=== PATIENT | female | born 1950 | race Caucasian/White ===

== ENCOUNTER 2022-07-30 16:17 | Inpatient (IN) ==
[2022-07-30] MEDS ORDERED: IOPAMIDOL 100 ML BOTTLE IV ONE (16:18)
[2022-07-30] MEDS ORDERED: ACETAMINOPHEN 650 MG/65 ML BAG IV ONE (16:22)
[2022-07-30] MEDS ORDERED: 0.9 % SODIUM CHLORIDE 1,000 ML IV ONE (16:22)
--- NOTE | 2022-07-30 16:26 | Emergency Department Note ---
Weakness HPI General Chief complaint: Nausea/Vomiting/Diarrhea Stated complaint: weakness Time Seen by Provider: 07/30/22 16:22 Source: patient and EMS Mode of arrival: wheelchair Limitations: no limitations History of Present Illness HPI Narrative: Narrative: Patient is a 71-year-old female who comes into the emergency department by EMS today after she started to feel weak, nauseated, and short of breath that st arted this morning. Patient has history of COPD and does not wear oxygen at home but required some O2 in route by EMS via nasal Cannula. She also has history of DVT and recently had left hip surgery on Tuesday this week. She was bridged from [employer] over the Lovenox and has been taking Lovenox since surgery. She reports this morning she started to feel ill and developed fever with shortness of breath, cough that is productive with yellow color product, generalized weakness, back pain, and nausea. Patient reports that her hip pain feels fine and she does not have any concerns with her hip. She has not had any chest pains. Related Data Home Medications Medication Instructions Recorded Confirmed albuterol sulfate 90 mcg/actuation 2 puff inhalation Q4HP PRN 09/04/21 07/30/22 aerosol inhaler (Ventolin HFA) Shortness Of Breath cholecalciferol (vitamin D3) 125 125 mcg PO QDAY 09/04/21 07/30/22 mcg (5,000 unit) tablet (Vitamin D3) coenzyme Q10 100 mg capsule (Co 100 mg PO QDAY 09/04/21 07/30/22 Q-10) fluticasone furoate 200 1 inh inhalation QAM 09/04/21 07/30/22 mcg-vilanterol 25 mcg/dose inhalation powder (Breo Ellipta) omeprazole 20 mg capsule,delayed 20 mg PO QDAY 09/04/21 07/30/22 release rosuvastatin 10 mg tablet 10 mg PO QAM 09/04/21 07/30/22 apixaban 5 mg (74 tabs) tablets in 5 mg PO BID 07/21/22 07/30/22 a dose pack fexofenadine 180 mg tablet 540 mg PO Q24H 07/21/22 07/30/22 hydrocodone 5 mg-acetaminophen 325 1 tab PO BIDP PRN Pain 07/21/22 07/30/22 mg tablet hydroxyzine HCl 25 mg tablet 25 mg PO BID@0800,1300 07/21/22 07/30/22 hydroxyzine HCl 25 mg tablet 175 mg PO QHS 07/21/22 07/30/22 ipratropium bromide 42 mcg (0.06 2 spray intranasal DAILYP PRN 07/21/22 07/30/22 %) nasal spray ALLERGIES Previous Rx's Medication Instructions Recorded docusate sodium 100 mg capsule 100 mg PO BID #60 caps 07/26/22 hydrocodone 10 mg-acetaminophen 1 - 2 tab PO Q4H PRN pain #75 tabs 07/26/22 325 mg tablet Allergies Allergy/AdvReac Type Severity Reaction Status Date / Time adhesive tape AdvReac Mild Skin Verified 07/30/22 16:17 Blisters tramadol AdvReac Mild Nausea Verified 07/30/22 16:17 Review of Systems ROS ROS Narrative: Narrative: All systems ED: reviewed and negative except as stated. [facility] Narrative Patient History Narrative: Narrative: Medical/Surgical/Family History All Active Problems (Updated 07/30/22 @ 18:41 by JULIA Pickett) Cerumen impaction (Acute) Pain in extremity (Acute) Rash (Acute) Deltoid tendinitis of left shoulder (Acute) Strain of lumbar paraspinous muscle (Acute) Bronchitis, acute (Acute) Acute sinusitis (Acute) Acute bronchitis (Acute) Bronchitis (Acute) Thumb sprain (Acute) Sinusitis (Acute) Chest pain (Acute) Allergy to adhesive tape (Acute) Deep vein thrombosis (DVT) of proximal lower extremity (Acute) Urticaria (Acute) Pneumonia (Acute) Medical History (Updated 07/30/22 @ 18:41 by JULIA Pickett) Acute bronchitis Acute sinusitis Bronchitis Bronchitis, acute Cerumen impaction Deltoid tendinitis of left shoulder Pain in extremity Rash Strain of lumbar paraspinous muscle Thumb sprain Social History Smoking Status: Former smoker Exam Narrative Narrative: Narrative: General Limitations: no limitations General appearance: Present alert and in no apparent distress Eye Eye: Present normal appearance; Absent scleral icterus ENT ENT: Present normal oropharynx and mucous membranes moist Neck Neck: Present normal inspection; Absent lymphadenopathy Chest Chest: Present symmetric chest wall rise Respiratory Respiratory: Present other (Respirations even and unlabored. Rhonchi heard through all lobes. No wheezes.); Absent respiratory distress Cardiovascular Cardiovascular: Present regular rate, normal rhythm and normal heart sounds; Absent JVD Adbominal Abdominal: Present soft; Absent distention or tenderness Extremities Extremities: Present normal inspection, full ROM and normal capillary refill; Absent pedal edema, pretibial edema or cyanosis Back Back: Present full ROM; Absent spinous process tenderness Neurological Neurological: Present alert and oriented X3 Psychiatric Psychiatric: Present normal affect and normal mood Skin Skin: Present warm (WNL), dry and normal color Course Vital Signs Vital signs: Vital Signs Temperature 102.4 F H 07/30/22 16:18 Pulse Rate 106 H 07/30/22 16:18 Respiratory Rate 20 07/30/22 16:18 Blood Pressure 135/64 07/30/22 16:18 Pulse Oximetry (%) 91 07/30/22 16:18 Oxygen Delivery Method 07/30/22 16:18 Temperature 98.8 F 07/31/22 11:00 Pulse Rate 78 07/31/22 11:55 Respiratory Rate 18 07/31/22 11:55 Blood Pressure 126/59 07/31/22 11:00 Pulse Oximetry (%) 95 07/31/22 12:48 Oxygen Delivery Method 07/31/22 12:48 Oxygen Flow Rate (L/min) 1 07/31/22 11:55 [facility] MDM Narrative Medical decision making narrative: Narrative: Patient is a 71-year-old female who recently had left hip surgery 4 days ago. She began feeling ill earlier this morning and EMS brought her in where she was requiring 4 L O2 via nasal cannula and was found to be hypoxic with room air sat of 86% upon EMS arrival to her home. She has a fever and was given acetaminophen for fever. Begin work-up with labs today, lactic acid, blood cu ltures, 1 L normal saline, and proceeded with a 1 view chest x-ray to evaluate for emergency conditions such as pneumothorax, and also had ordered a CTA of chest given her history of DVT and recent surgery with bridging from her DOAC to the Lovenox. EKG today shows normal sinus rhythm with no acute coronary syndrome findings to my review. The chest x-ray and CTA show bibasilar pneumonia. Patient has negative troponin today. Patient's CMP is rather unremarkable. Her white count today is 13.4. Initially did proceed with the 1 view chest x-ray for evaluation of emergent condition such as pneumothorax given she was having hypoxia. This does not show pneumothorax and shows bilateral pneumonia. Her D- dimer today is elevated at 1.20. A CTA of the chest was completed that does not show any pulmonary embolism. Patient currently is taking Lovenox and bridging to her Eliquis after recent hip surgery. Patient has hypoxia and is requiring 2 L of O2 to maintain oxygen saturation greater than 90% today and they feel that with the bilateral pneumonia and hypoxia the patient should be considered for hospitalization at [facility]. I was able to talk with Dr. Meeks who is on today for hospitalist and he agrees to accept patient for hospital admission at [facility]. Lab Data Result diagrams: 07/31/22 05:26 07/31/22 05:26 Labs: Lab Results 07/30/22 07/30/22 07/30/22 Range/Units 16:33 16:33 16:33 WBC 13.4 H (4.5-11.0) K/mcL RBC 3.80 (3.59-5.38) M/mcL Hgb 10.0 L (11.2-15.7) g/dL Hct 32.4 L (34.1-44.9) % MCV 85.3 (80.0-100.0) fL MCH 26.3 (26.0-34.0) pg MCHC 30.9 L (31.0-36.0) g/dL RDW 14.3 (11.5-14.5) % Plt Count 379 (140-440) K/mcL MPV 9.5 (8.8-12.5) fL Immature Gran % (Auto) 0.4 (0.0-0.5) % Neut % (Auto) 85.1 H (38.0-78.0) % Lymph % (Auto) 8.5 L (15.5-49.0) % Yancey % (Auto) 5.2 (1.0-12.0) % Eos % (Auto) 0.7 (0.0-7.0) % Baso % (Auto) 0.1 (0.0-2.0) % Lymph # (Auto) 1.14 L (1.50-4.80) K/mcL Yancey # (Auto) 0.69 (0.10-0.90) K/mcL Eos # (Auto) 0.09 (0.00-0.70) K/mcL Baso # (Auto) 0.02 (0.00-0.30) K/mcL Immature Gran # 0.05 (0.00-0.05) K/mcl Absolute Neutrophils 11.36 H (1.80-8.00) K/mcL D-Dimer (0.27-0.50) ug/mL POC VBG pH (7.32-7.42) POC VBG pCO2 at Temp (41-51) POC VBG pO2 (25-40) POC VBG HCO3 (24-28) POC VBG Total CO2 (25-29) POC Venous O2 Sat (40-70) POC VBG Base Excess (-2-2) VBG Lactic Acid (0.5-2) Sodium 136 (133-145) mmol/L Potassium 4.0 (3.3-5.1) mmol/L Chloride 100 (96-108) mmol/L Carbon Dioxide 25 (22-30) mmol/L Anion Gap 11.0 (8.0-16.0) BUN 11 (8-23) mg/dL Creatinine 0.8 (0.6-1.1) mg/dL POC Creatinine GFR Calculation 74 Glucose 164 H (70-105) mg/dL Calcium 8.8 (8.6-10.4) mg/dL Total Bilirubin 0.9 (0.1-1.0) mg/dL AST 23 (<32) U/L ALT 14 (<40) U/L Alkaline Phosphatase 122 H (39-117) U/L Troponin T < 0.01 (<0.03) ng/mL NT-Pro-B Natriuret Pep 264.4 H (<125.0) pg/mL Total Protein 6.3 (5.9-8.4) gm/dL Albumin 3.2 (3.2-5.2) gm/dL Globulin 3.1 (2.2-3.7) gm/dL Albumin/Globulin Ratio 1.0 (1.0-2.3) Procalcitonin (<0.10) ng/mL 07/30/22 07/30/22 07/30/22 Range/Units 16:33 16:33 16:36 WBC (4.5-11.0) K/mcL RBC (3.59-5.38) M/mcL Hgb (11.2-15.7) g/dL Hct (34.1-44.9) % MCV (80.0-100.0) fL MCH (26.0-34.0) pg MCHC (31.0-36.0) g/dL RDW (11.5-14.5) % Plt Count (140-440) K/mcL MPV (8.8-12.5) fL Immature Gran % (Auto) (0.0-0.5) % Neut % (Auto) (38.0-78.0) % Lymph % (Auto) (15.5-49.0) % Yancey % (Auto) (1.0-12.0) % Eos % (Auto) (0.0-7.0) % Baso % (Auto) (0.0-2.0) % Lymph # (Auto) (1.50-4.80) K/mcL Yancey # (Auto) (0.10-0.90) K/mcL Eos # (Auto) (0.00-0.70) K/mcL Baso # (Auto) (0.00-0.30) K/mcL Immature Gran # (0.00-0.05) K/mcl Absolute Neutrophils (1.80-8.00) K/mcL D-Dimer (0.27-0.50) ug/mL POC VBG pH 7.41 (7.32-7.42) POC VBG pCO2 at Temp 41.6 (41-51) POC VBG pO2 22 L (25-40) POC VBG HCO3 26.3 (24-28) POC VBG Total CO2 28.0 (25-29) POC Venous O2 Sat 38.0 L (40-70) POC VBG Base Excess 2.0 (-2-2) VBG Lactic Acid 1.1 (0.5-2) Sodium (133-145) mmol/L Potassium (3.3-5.1) mmol/L Chloride (96-108) mmol/L Carbon Dioxide (22-30) mmol/L Anion Gap (8.0-16.0) BUN (8-23) mg/dL Creatinine (0.6-1.1) mg/dL POC Creatinine GFR Calculation Glucose (70-105) mg/dL Calcium (8.6-10.4) mg/dL Total Bilirubin (0.1-1.0) mg/dL AST (<32) U/L ALT (<40) U/L Alkaline Phosphatase (39-117) U/L Troponin T (<0.03) ng/mL NT-Pro-B Natriuret Pep (<125.0) pg/mL Total Protein (5.9-8.4) gm/dL Albumin (3.2-5.2) gm/dL Globulin (2.2-3.7) gm/dL Albumin/Globulin Ratio (1.0-2.3) Procalcitonin 0.15 H (<0.10) ng/mL 07/30/22 07/30/22 Range/Units 16:45 16:56 WBC (4.5-11.0) K/mcL RBC (3.59-5.38) M/mcL Hgb (11.2-15.7) g/dL Hct (34.1-44.9) % MCV (80.0-100.0) fL MCH (26.0-34.0) pg MCHC (31.0-36.0) g/dL RDW (11.5-14.5) % Plt Count (140-440) K/mcL MPV (8.8-12.5) fL Immature Gran % (Auto) (0.0-0.5) % Neut % (Auto) (38.0-78.0) % Lymph % (Auto) (15.5-49.0) % Yancey % (Auto) (1.0-12.0) % Eos % (Auto) (0.0-7.0) % Baso % (Auto) (0.0-2.0) % Lymph # (Auto) (1.50-4.80) K/mcL Yancey # (Auto) (0.10-0.90) K/mcL Eos # (Auto) (0.00-0.70) K/mcL Baso # (Auto) (0.00-0.30) K/mcL Immature Gran # (0.00-0.05) K/mcl Absolute Neutrophils (1.80-8.00) K/mcL D-Dimer 1.20 H (0.27-0.50) ug/mL POC VBG pH (7.32-7.42) POC VBG pCO2 at Temp (41-51) POC VBG pO2 (25-40) POC VBG HCO3 (24-28) POC VBG Total CO2 (25-29) POC Venous O2 Sat (40-70) POC VBG Base Excess (-2-2) VBG Lactic Acid (0.5-2) Sodium (133-145) mmol/L Potassium (3.3-5.1) mmol/L Chloride (96-108) mmol/L Carbon Dioxide (22-30) mmol/L Anion Gap (8.0-16.0) BUN (8-23) mg/dL Creatinine (0.6-1.1) mg/dL POC Creatinine 0.8 GFR Calculation Glucose (70-105) mg/dL Calcium (8.6-10.4) mg/dL Total Bilirubin (0.1-1.0) mg/dL AST (<32) U/L ALT (<40) U/L Alkaline Phosphatase (39-117) U/L Troponin T (<0.03) ng/mL NT-Pro-B Natriuret Pep (<125.0) pg/mL Total Protein (5.9-8.4) gm/dL Albumin (3.2-5.2) gm/dL Globulin (2.2-3.7) gm/dL Albumin/Globulin Ratio (1.0-2.3) Procalcitonin (<0.10) ng/mL ED POC Tests ED POC Tests: FLOR - Influenza A Negative FLOR - Influenza B Negative FLOR - SARS Antigen Negative Radiology Data Radiology results reviewed: Yes I reviewed the patient's radiology results. Radiology results narrative: Ordering Physician:Shree Reyes Date of Service:07/30/22 Procedure(s):CT angio chest History: Short of breath, tachycardia, prior right upper lobectomy for tumor TECHNIQUE: Following injection of intravenous nonionic contrast the chest was imaged during the pulmonary arterial phase. Sagittal, coronal and axial MIPS images were created. The radiation exposure was limited using dose reduction technology. FINDINGS: The pulmonary arteries are normal without evidence of emboli. The aorta is normal in caliber with no aneurysm or dissection. There is minimal plaque formation in the aorta and its origin right main coronary artery. The heart is normal in size and contour. There is a metal loop recorder and subcutaneous tissues anteriorly in the left mid chest. Right upper lobe is been resected. There is pleural and parenchymal scarring in the right apex. Patient has mild emphysema, predominantly involving the left upper lobe. There are moderate ground glass consolidating infiltrates in the posterior basal segments of both lower lobes, left greater than right. No pleural effusion is present. There is no evidence of a lung mass. Small lymph nodes are present in the mediastinum and both louie. There are less than 1 cm in size. There is no pleural or pericardial effusion are present. There is moderate generalized fatty infiltration of the liver, with no apparent liver metastasis the adrenals are normal.. IMPRESSION: No evidence pulmonary emboli Moderate bibasilar pneumonia Emphysema No evidence of metastasis following right upper lobectomy Shree Reyes was called with the report Interpreted and Authenticated by: Ari Rios 07/30/22 Ordering Physician:Shree Reyes Date of Service:07/30/22 Procedure(s):XR chest 1V portable HISTORY: Short of breath, tachycardia, prior right upper lobectomy for lung cancer FINDINGS: Right upper lobe is been resected. There is pleural and parenchymal scarring in the right apex and mild upward retraction of the right hilum. Mild emphysema is present in the left upper lobe. There are ill-defined alveolar infiltrates in both lower lobes, left greater than right. No pleural effusion is present. The heart size is normal. There is a loop recorder overlying the left upper heart border. Right hilum is distorted due to the old surgery. IMPRESSION: Bibasilar pneumonia Interpreted and Authenticated by: Ari Rios 07/30/22 EKG Data EKG #1: EKG attestation: Yes I reviewed and interpreted this EKG. and Yes There a re no EKG findings of acute coronary syndrome EKG shows normal: sinus rhythm Rate: normal Discharge Plan Patient/Caregiver Discharge Instructions Pt seen by PAPER RULER/PA only: No Clinical Impression: Pneumonia Activity: increase activity as tolerated Patient Disposition: Xfer As Inpt ([facility]) Discharge Date/Time: 07/30/22 21:32
--- NOTE | 2022-07-30 17:45 | XRay Report ---
HISTORY: Short of breath, tachycardia, prior right upper lobectomy for lung cancer FINDINGS: Right upper lobe is been resected. There is pleural and parenchymal scarring in the right apex and mild upward retraction of the right hilum. Mild emphysema is present in the left upper lobe. There are ill-defined alveolar infiltrates in both lower lobes, left greater than right. No pleural effusion is present. The heart size is normal. There is a loop recorder overlying the left upper heart border. Right hilum is distorted due to the old surgery. IMPRESSION: Bibasilar pneumonia Interpreted and Authenticated by: Ari Rios 07/30/22
--- NOTE | 2022-07-30 17:48 | Cat Scan Report ---
History: Short of breath, tachycardia, prior right upper lobectomy for tumor TECHNIQUE: Following injection of intravenous nonionic contrast the chest was imaged during the pulmonary arterial phase. Sagittal, coronal and axial MIPS images were created. The radiation exposure was limited using dose reduction technology. FINDINGS: The pulmonary arteries are normal without evidence of emboli. The aorta is normal in caliber with no aneurysm or dissection. There is minimal plaque formation in the aorta and its origin right main coronary artery. The heart is normal in size and contour. There is a metal loop recorder and subcutaneous tissues anteriorly in the left mid chest. Right upper lobe is been resected. There is pleural and parenchymal scarring in the right apex. Patient has mild emphysema, predominantly involving the left upper lobe. There are moderate ground glass consolidating infiltrates in the posterior basal segments of both lower lobes, left greater than right. No pleural effusion is present. There is no evidence of a lung mass. Small lymph nodes are present in the mediastinum and both louie. There are less than 1 cm in size. There is no pleural or pericardial effusion are present. There is moderate generalized fatty infiltration of the liver, with no apparent liver metastasis the adrenals are normal.. IMPRESSION: No evidence pulmonary emboli Moderate bibasilar pneumonia Emphysema No evidence of metastasis following right upper lobectomy Shree Reyes was called with the report Interpreted and Authenticated by: Ari Rios 07/30/22
[2022-07-30 18:06] LABS: Basophils # (Auto) 0.02 K/mcL (0.00-0.30); Basophils % (Auto) 0.1 % (0.0-2.0); Eosinophils # (Auto) 0.09 K/mcL (0.00-0.70); Eosinophils % (Auto) 0.7 % (0.0-7.0); Hematocrit 32.4 % (34.1-44.9); Lymphocytes # (Auto) 1.14 K/mcL (1.50-4.80); Lymphocytes % (Auto) 8.5 % (15.5-49.0); Mean Cell Volume 85.3 fL (80.0-100.0); Mean Corpuscular HGB Conc 30.9 g/dL (31.0-36.0); Mean Platelet Volume 9.5 fL (8.8-12.5); Monocytes # (Auto) 0.69 K/mcL (0.10-0.90); Monocytes % (Auto) 5.2 % (1.0-12.0); Neutrophils % (Auto) 85.1 % (38.0-78.0); Platelet Count 379 K/mcL (140-440); Red Cell Distribution Width 14.3 % (11.5-14.5); WBC 13.4 K/mcL (4.5-11.0)
[2022-07-30] MEDS ORDERED: cefTRIAXone 1 GM VIAL IV ONE (18:19)
[2022-07-30 18:34] LABS: proBNP 264.4 pg/mL (<125.0)
[2022-07-30 18:37] LABS: ALT/SGPT 14 U/L (<40); AST/SGOT 23 U/L (<32); Albumin 3.2 gm/dL (3.2-5.2); Alkaline Phosphatase 122 U/L (39-117); Bilirubin,Total 0.9 mg/dL (0.1-1.0); Blood Urea Nitrogen 11 mg/dL (8-23); Calcium 8.8 mg/dL (8.6-10.4); Carbon Dioxide 25 mmol/L (22-30); Chloride 100 mmol/L (96-108); Globulin 3.1 gm/dL (2.2-3.7); Glomerular Filtration Rate 74; Glucose 164 mg/dL (70-105)
--- NOTE | 2022-07-30 19:34 | Internal Med History&Physical ---
HPI History of Present Illness Patient information: Note initiated : 07/30/22 at 7:31 pm Service Date, if different from initiated Date: [] Patient: Nicole Garcia 71 y/o F admitted on for weakness. Chief Complaint: [] History of present illness: Ms. Garcia is a 71 year old F Presents the ED with shortness of breath and per family lethargy confusion and nausea vomiting. Patient also complains of fever and chills. She went to bed feeling fine and woke up feeling okay but gradually throughout the day she started noticing increased shortness of breath and then she had subsequent fevers and chills and lethargy. Family said she was out of sorts and did not make sense at times. She did have a left total hip arthroplasty on the seventh. And she does have a history of DVT. She has been bridged with Lovenox CTA of the chest was done in the ED which did not show any pulmonary embolism but did show moderate bibasilar pneumonia as well as emphysema. She is coughing as well. In the ED her fever was 102.4. He was mildly tachycardic at 100. She had a mild leukocytosis of 13. When EMS arrived at her house she had a oxygen saturation of 86%. He was placed on room air in the ED to see if she would do and she dropped into the 80s. Rapid Shaista for influenza AB and COVID were negative. Started on IV antibiotics in the ED. Review of Systems: Pertinent positives as above. Denies headache/chest or abdominal pain/diarrhea. Remaining 10 point review of system reviewed negative PFSH PFSH All Active Problems (Updated 07/30/22 @ 18:41 by JULIA Pickett) Cerumen impaction (Acute) Pain in extremity (Acute) Rash (Acute) Deltoid tendinitis of left shoulder (Acute) Strain of lumbar paraspinous muscle (Acute) Bronchitis, acute (Acute) Acute sinusitis (Acute) Acute bronchitis (Acute) Bronchitis (Acute) Thumb sprain (Acute) Sinusitis (Acute) Chest pain (Acute) Allergy to adhesive tape (Acute) Deep vein thrombosis (DVT) of proximal lower extremity (Acute) Urticaria (Acute) Pneumonia (Acute) Medical History (Updated 07/30/22 @ 18:41 by JULIA Pickett) Acute bronchitis Acute sinusitis Bronchitis Bronchitis, acute Cerumen impaction Deltoid tendinitis of left shoulder Pain in extremity Rash Strain of lumbar paraspinous muscle Thumb sprain Social History smoking status: Former smoker MEDS/ALLERGIES Home Medications and Allergies Home Medications Medication Instructions Recorded Confirmed Type albuterol sulfate 90 mcg/actuation 2 puff inhalation Q4HP PRN 09/04/21 07/30/22 History aerosol inhaler (Ventolin HFA) Shortness Of Breath cholecalciferol (vitamin D3) 125 125 mcg PO QDAY 09/04/21 07/30/22 History mcg (5,000 unit) tablet (Vitamin D3) coenzyme Q10 100 mg capsule (Co 100 mg PO QDAY 09/04/21 07/30/22 History Q-10) fluticasone furoate 200 1 inh inhalation QAM 09/04/21 07/30/22 History mcg-vilanterol 25 mcg/dose inhalation powder (Breo Ellipta) omeprazole 20 mg capsule,delayed 20 mg PO QDAY 09/04/21 07/30/22 History release rosuvastatin 10 mg tablet 10 mg PO QAM 09/04/21 07/30/22 History apixaban 5 mg (74 tabs) tablets in 5 mg PO BID 07/21/22 07/30/22 History a dose pack enoxaparin 80 mg/0.8 mL 80 mg subcut Q12H 07/21/22 07/30/22 History subcutaneous syringe (Lovenox) fexofenadine 180 mg tablet 540 mg PO Q24H 07/21/22 07/30/22 History hydrocodone 5 mg-acetaminophen 325 1 tab PO BIDP PRN Pain 07/21/22 07/30/22 History mg tablet hydroxyzine HCl 25 mg tablet 25 mg PO BID@0800,1300 07/21/22 07/30/22 History hydroxyzine HCl 25 mg tablet 175 mg PO QHS 07/21/22 07/30/22 History ipratropium bromide 42 mcg (0.06 2 spray intranasal DAILYP PRN 07/21/22 07/30/22 History %) nasal spray ALLERGIES aspirin 81 mg tablet,delayed 81 mg PO BID #60 tabs 07/26/22 07/30/22 Rx release (Ecotrin Low Strength) docusate sodium 100 mg capsule 100 mg PO BID #60 caps 07/26/22 07/30/22 Rx hydrocodone 10 mg-acetaminophen 1 - 2 tab PO Q4H PRN pain #75 tabs 07/26/22 07/30/22 Rx 325 mg tablet Allergies Allergy/AdvReac Type Severity Reaction Status Date / Time adhesive tape AdvReac Mild Skin Verified 07/30/22 16:17 Blisters tramadol AdvReac Mild Nausea Verified 07/30/22 16:17 EXAM Constitutional Vitals: Temp Pulse Resp BP Pulse Ox O2 Del Method 99.1 F H 84 20 116/57 88 L 07/30/22 19:00 07/30/22 19:13 07/30/22 16:18 07/30/22 19:01 07/30/22 19:13 07/30/22 19:13 Exam: General: Alert, Awake, No acute Distress, obese Eyes/N/T: EOMI, PERRL, Head/Neck: neck supple, normocephalic atraumatic CV: RRR, No murmurs, normal s1/s2 Pulm: Rhonchi b/l, mild wheezing Abd: soft, nontender, +BS x4 Ext: no clubbing/cyanosis, 1-2+ b/l LE edema Neuro: Alert, no focal deficits, moves all extremities, CN 2-12 grossly intact, symmetrical strength b/l upper/lower, sensations intact b/l upper/lower Skin: warm/dry DATA Data Completed and Pending Labs: Labs from last 24 hours 07/30/22 07/30/22 07/30/22 16:56 16:45 16:36 WBC RBC Hgb Hct MCV MCH MCHC RDW Plt Count MPV Immature Gran % (Auto) Neut % (Auto) Lymph % (Auto) [place] % (Auto) Eos % (Auto) Baso % (Auto) Lymph # (Auto) [place] # (Auto) Eos # (Auto) Baso # (Auto) Immature Gran # Absolute Neutrophils D-Dimer 1.20 H POC VBG pH 7.41 POC VBG pCO2 at Temp 41.6 POC VBG pO2 22 L POC VBG HCO3 26.3 POC VBG Total CO2 28.0 POC Venous O2 Sat 38.0 L POC VBG Base Excess 2.0 VBG Lactic Acid 1.1 Sodium Potassium Chloride Carbon Dioxide Anion Gap BUN Creatinine POC Creatinine 0.8 GFR Calculation Glucose Calcium Total Bilirubin AST ALT Alkaline Phosphatase Troponin T NT-Pro-B Natriuret Pep Total Protein Albumin Globulin Albumin/Globulin Ratio Procalcitonin 07/30/22 07/30/22 07/30/22 16:33 16:33 16:33 WBC RBC Hgb Hct MCV MCH MCHC RDW Plt Count MPV Immature Gran % (Auto) Neut % (Auto) Lymph % (Auto) [place] % (Auto) Eos % (Auto) Baso % (Auto) Lymph # (Auto) [place] # (Auto) Eos # (Auto) Baso # (Auto) Immature Gran # Absolute Neutrophils D-Dimer POC VBG pH POC VBG pCO2 at Temp POC VBG pO2 POC VBG HCO3 POC VBG Total CO2 POC Venous O2 Sat POC VBG Base Excess VBG Lactic Acid Sodium Potassium Chloride Carbon Dioxide Anion Gap BUN Creatinine POC Creatinine GFR Calculation Glucose Calcium Total Bilirubin AST ALT Alkaline Phosphatase Troponin T < 0.01 NT-Pro-B Natriuret Pep Total Protein Albumin Globulin Albumin/Globulin Ratio Procalcitonin 0.15 H 07/30/22 07/30/22 16:33 16:33 WBC 13.4 H RBC 3.80 Hgb 10.0 L Hct 32.4 L MCV 85.3 MCH 26.3 MCHC 30.9 L RDW 14.3 Plt Count 379 MPV 9.5 Immature Gran % (Auto) 0.4 Neut % (Auto) 85.1 H Lymph % (Auto) 8.5 L [place] % (Auto) 5.2 Eos % (Auto) 0.7 Baso % (Auto) 0.1 Lymph # (Auto) 1.14 L [place] # (Auto) 0.69 Eos # (Auto) 0.09 Baso # (Auto) 0.02 Immature Gran # 0.05 Absolute Neutrophils 11.36 H D-Dimer POC VBG pH POC VBG pCO2 at Temp POC VBG pO2 POC VBG HCO3 POC VBG Total CO2 POC Venous O2 Sat POC VBG Base Excess VBG Lactic Acid Sodium 136 Potassium 4.0 Chloride 100 Carbon Dioxide 25 Anion Gap 11.0 BUN 11 Creatinine 0.8 POC Creatinine GFR Calculation 74 Glucose 164 H Calcium 8.8 Total Bilirubin 0.9 AST 23 ALT 14 Alkaline Phosphatase 122 H Troponin T NT-Pro-B Natriuret Pep 264.4 H Total Protein 6.3 Albumin 3.2 Globulin 3.1 Albumin/Globulin Ratio 1.0 Procalcitonin A/P Narrative A/P Narrative: A: *Acute hypoxic respiratory failure: *Pneumonia: *Sepsis: 2/2 above *Encephalopathy: Improved in the ED *h/o DVT: on eliquis *COPD: *GERD: *Obesity: BMI 35 *Recent Left HOLLIE: P: -Rocephin/azithromycin, pending SC/BC -O2 Supp and wean as able -IS/Acapella -follow-up CBC and chemistry -RVP pending - -PT/OT -ppx: Eliquis /home PPI Time Spent With Patient Time: Total time spent is greater than 50% in coordination of care (as documented) at patient's floor/unit and/or counseling patient: Total time spent with greater than 50% in coordination of care (as documented) at patient's floor/unit and/or counseling patient:: Greater than 70 minutes
[2022-07-30] MEDS ORDERED: HYDROcodone/APAP 10/325MG TABLET PO ONE (20:14)
[2022-07-30] MEDS ORDERED: HYDROcodone/APAP 5/325MG TABLET PO ONE (20:15)
[2022-07-30] MEDS ORDERED: hydrOXYzine 25 MG TABLET PO PRN (20:56)
[2022-07-30] MEDS ORDERED: ENOXAPARIN 80 MG/0.8 ML SYRINGE SQ SCH (21:00)
[2022-07-30] MEDS ORDERED: HYDROcodone/APAP 5/325MG TABLET PO PRN (21:34)
[2022-07-30] MEDS ORDERED: ACETAMINOPHEN 325 MG TABLET PO PRN (21:34)
[2022-07-30] MEDS ORDERED: POTASSIUM CHLORIDE 20 MEQ TABLET PO PRN ×2 (21:34)
[2022-07-30] MEDS ORDERED: POTASSIUM CHLORIDE 40 MEQ in DEXTROSE 5% IN WATER 500 ML IV PRN (21:34)
[2022-07-30] MEDS ORDERED: SENNOSIDES 1 TABLET PO PRN (21:34)
[2022-07-30] MEDS ORDERED: POLYETHYLENE GLYCOL 3350 17 GM PACKET PO PRN (21:34)
[2022-07-30] MEDS ORDERED: MAGNESIUM SULFATE 2 GM/50 ML BAG IV PRN (21:34)
[2022-07-30] MEDS ORDERED: cefTRIAXone 1 GM in DEXTROSE 5% IN WATER 50 ML IV SCH (21:34)
[2022-07-30] MEDS ORDERED: IPRATROPIUM/ALBUTEROL 3 ML AMPUL.NEB NEB PRN (21:34)
[2022-07-30] MEDS: cefTRIAXone 1 GM VIAL IV SCH (21:58)
[2022-07-30] MEDS: DOCUSATE SODIUM 100 MG CAPSULE PO SCH (22:10)
[2022-07-30] MEDS: 0.9 % SODIUM CHLORIDE 10 ML SYRINGE IV SCH (22:11)
[2022-07-30] MEDS: AZITHROMYCIN 500 MG in DEXTROSE 5% IN WATER 250 ML IV SCH (22:11)
[2022-07-31] MEDS: 0.9 % SODIUM CHLORIDE 10 ML SYRINGE IV SCH ×3 (05:18→20:30)
[2022-07-31 07:25] LABS: Basophils # (Auto) 0.02 K/mcL (0.00-0.30); Basophils % (Auto) 0.2 % (0.0-2.0); Eosinophils # (Auto) 0.25 K/mcL (0.00-0.70); Eosinophils % (Auto) 2.1 % (0.0-7.0); Hematocrit 28.4 % (34.1-44.9); Lymphocytes # (Auto) 1.75 K/mcL (1.50-4.80); Mean Cell Volume 84.8 fL (80.0-100.0); Mean Corpuscular HGB Conc 31.7 g/dL (31.0-36.0); Mean Platelet Volume 9.6 fL (8.8-12.5); Monocytes # (Auto) 0.76 K/mcL (0.10-0.90); Monocytes % (Auto) 6.5 % (1.0-12.0); Neutrophils % (Auto) 75.8 % (38.0-78.0); Platelet Count 357 K/mcL (140-440); RBC 3.35 M/mcL (3.59-5.38); Red Cell Distribution Width 14.3 % (11.5-14.5); WBC 11.7 K/mcL (4.5-11.0)
--- NOTE | 2022-07-31 07:33 | Internal Med Progress Note ---
SUBJECTIVE Subjective Patient information: Note initiated : 07/31/22 at 7:30 am Service Date, if different from initiated Date: [] Patient: Nicole Garcia 71 y/o F admitted on 07/30/22 for weakness. Chief Complaint: [] Interval history: History of present illness: Ms. Garcia is a 71 year old F Presents the ED with shortness of breath and per family lethargy confusion and nausea vomiting. Patient also complains of fever and chills. She went to bed feeling fine and woke up feeling okay but gradually throughout the day she started noticing increased shortness of breath and then she had subsequent fevers and chills and lethargy. Family said she was out of sorts and did not make sense at times. She did have a left total hip arthroplasty on the seventh. And she does have a history of DVT. She has been bridged with Lovenox CTA of the chest was done in the ED which did not show any pulmonary embolism but did show moderate bibasilar pneumonia as well as emphysema. She is coughing as well. In the ED her fever was 102.4. He was mildly tachycardic at 100. She had a mild leukocytosis of 13. When EMS arrived at her house she had a oxygen saturation of 86%. He was placed on room air in the ED to see if she would do and she dropped into the 80s. Rapid Shaista for influenza AB and COVID were negative. Started on IV antibiotics in the ED. 07/31 Patient feeling little bit better today. She says cough and shortness of breath are improving. She does feel little bit wheezy. Review of Systems: denies headache/fever/chills/nausea/vomiting/chest or abdominal pain/diarrhea. Otherwise see above. Constitutional Vitals: Vital Signs Temp Pulse Resp BP Pulse Ox O2 Del Method O2 Flow Rate 98.9 F 76 18 110/51 94 2 07/31/22 03:31 07/31/22 03:31 07/31/22 03:31 07/31/22 03:31 07/31/22 03:31 07/31/22 03:31 07/31/22 03:31 Period Temp Pulse Resp BP Sys/Yen Pulse Ox O2 Del Method O2 Flow Rate Last 24 Hr 98.5 F-102.4 F 73-106 18-20 95-139/46-95 88-98 Nasal Cannula- Room Air 2-2 Intake and Output 07/30/22 07/31/22 07/31/22 19:59 03:59 11:59 Intake Total 1065 450 Output Total 450 Balance 1065 0 Weight 92.079 kg 95.708 kg Intake & Output: Intake & Output 07/30/22 07/31/22 07/31/22 19:59 03:59 11:59 Intake Total 1065 450 Output Total 450 Balance 1065 0 Weight 92.079 kg 95.708 kg Intake: IV 1065 250 Sodium Chloride 0.9% 1,000 ml @ 1000 Wide Open IV .Q0M ONE Rx#: [id number] Zithromax 500 mg In Dextrose 5% 250 in Water 250 ml @ 250 mls/hr IV Q24H [facility] Rx#:[id number] Oral 200 Output: Void Amount 450 Other: Urine Appearance Clear Urine Color Light Aneta Exam: General: Alert, Awake, No acute Distress, obese Eyes/N/T: EOMI, Head/Neck: neck supple, CV: RRR, No murmurs, Pulm: Rhonchi and wheezing b/l Abd: soft, nontender, +BS x4 Ext: no clubbing/cyanosis, 1-2+ b/l LE edema Neuro: Alert, no focal deficits, moves all extremities Skin: warm/dry OBJ DATA Labs CBC & Chem 7: 07/31/22 05:26 07/31/22 05:26 Labs: Abnormal Lab Results 07/31/22 07/30/22 07/30/22 05:26 16:45 16:36 WBC 11.7 H RBC 3.35 L Hgb 9.0 L Hct 28.4 L MCHC Neut % (Auto) Lymph % (Auto) 15.0 L Lymph # (Auto) Absolute Neutrophils 8.82 H D-Dimer 1.20 H POC VBG pO2 22 L POC Venous O2 Sat 38.0 L Glucose Alkaline Phosphatase NT-Pro-B Natriuret Pep Procalcitonin 07/30/22 07/30/22 07/30/22 16:33 16:33 16:33 WBC 13.4 H RBC Hgb 10.0 L Hct 32.4 L MCHC 30.9 L Neut % (Auto) 85.1 H Lymph % (Auto) 8.5 L Lymph # (Auto) 1.14 L Absolute Neutrophils 11.36 H D-Dimer POC VBG pO2 POC Venous O2 Sat Glucose 164 H Alkaline Phosphatase 122 H NT-Pro-B Natriuret Pep 264.4 H Procalcitonin 0.15 H Meds: Medications Acetaminophen (Acetaminophen 325 Mg Tablet) 650 mg PO Q6HP PRN; Protocol PRN Reason: Per Pain Protocol/Fever > 101 Hydrocodone Bitart/Acetaminophen (Hydrocodone/Apap 10/325mg Tablet) 1 - 2 tab PO Q4HP PRN; Protocol PRN Reason: pain Albuterol/Ipratropium (Ipratropium/Albuterol 3 Ml Ampul.Neb) 3 ml NEB Q4HP PRN PRN Reason: Shortness Of Breath Apixaban (Apixaban 5 Mg Tablet) 5 mg PO BID [facility] Atorvastatin Calcium (Atorvastatin 20 Mg Tablet) 20 mg PO QAM [facility] Ceftriaxone Sodium (Ceftriaxone 1 Gm Vial) 1 gm IV Q24H [facility] Last Admin: 07/30/22 21:58 Dose: Not Given Docusate Sodium (Docusate Sodium 100 Mg Capsule) 100 mg PO BID [facility] Last Admin: 07/30/22 22:10 Dose: 100 mg Hydroxyzine HCl (Hydroxyzine 25 Mg Tablet) 100 mg PO HSP PRN PRN Reason: anxiety/insomina Potassium Chloride 40 meq/ (Dextrose) 520 mls @ 130 mls/hr IV UD PRN PRN Reason: Potassium < 3 Magnesium Sulfate (Magnesium Sulfate) 2 gm in 50 mls @ 50 mls/hr IV UD PRN PRN Reason: Magnesium </= 1.6 Azithromycin 500 mg/ Dextrose 250 mls @ 250 mls/hr IV Q24H [facility]; Protocol Stop: 08/01/22 22:59 Last Infusion: 07/30/22 23:18 Dose: Infused Omeprazole (Omeprazole 20 Mg Capsule) 20 mg PO QDAY [facility] Ondansetron HCl (Ondansetron 4 Mg/2 Ml Vial) 4 mg IV Q4HP PRN PRN Reason: Nausea And Vomiting Fluticasone Furoate- Vilanterol [Breo Ellipta] 200mg 1 dose INH QAM [facility] Polyethylene Glycol (Polyethylene Glycol 3350 17 Gm Packet) 17 gm PO DAILYP PRN PRN Reason: Constipation Potassium Chloride (Potassium Chloride 20 Meq Tablet) 40 meq PO UD PRN PRN Reason: Potssium is 3-3.5 Potassium Chloride (Potassium Chloride 20 Meq Tablet) 40 meq PO UD PRN PRN Reason: Potassium < 3 Senna (Sennosides 1 Tablet) 2 tab PO DAILYP PRN PRN Reason: Constipation Sodium Chloride (0.9 % Sodium Chloride 10 Ml Syringe) 10 ml IV Q8 [facility] Last Admin: 07/31/22 05:18 Dose: 10 ml A/P Narrative A/P Narrative: A: *Acute hypoxic respiratory failure: -down to 1L NC *Pneumonia: *Sepsis: 2/2 above -Leukocytosis improved *Encephalopathy: Improved in the ED *h/o DVT: on eliquis *COPD: *GERD: *Obesity: BMI 35 *Recent Left HOLLIE: P: -Rocephin/azithromycin, pending SC/BC -O2 Supp and wean as able -IS/Acapella -follow-up CBC and chemistry -RVP pending -PT/OT -ppx: Eliquis /home PPI Time Spent With Patient Time: Total time spent is greater than 50% in coordination of care (as documented) at patient's floor/unit and/or counseling patient: Total time spent with greater than 50% in coordination of care (as documented) at patient's floor/unit and/or counseling patient:: 25 - 35 minutes QUALITY VTE Deep Vein Thrombosis/Pulmonary Embolism Present on Admission: No
[2022-07-31 07:46] LABS: ALT/SGPT 15 U/L (<40); AST/SGOT 22 U/L (<32); Albumin 3.1 gm/dL (3.2-5.2); Albumin/Globulin Ratio 1.2 (1.0-2.3); Alkaline Phosphatase 119 U/L (39-117); Bilirubin,Direct 0.3 mg/dL (<0.3); Bilirubin,Total 0.7 mg/dL (0.1-1.0); Blood Urea Nitrogen 12 mg/dL (8-23); Calcium 8.4 mg/dL (8.6-10.4); Carbon Dioxide 26 mmol/L (22-30); Chloride 99 mmol/L (96-108); Globulin 2.6 gm/dL (2.2-3.7); Glomerular Filtration Rate 74; Glucose 128 mg/dL (70-105); Lactate Dehydrogenase 202 U/L (135-225); Phosphorous 2.6 mg/dL (2.5-4.5); Triglycerides 76 mg/dL (<150); Uric Acid 4.1 mg/dL (2.5-8.0)
[2022-07-31] MEDS: APIXABAN 5 MG TABLET PO SCH ×2 (08:35→20:30)
[2022-07-31] MEDS: DOCUSATE SODIUM 100 MG CAPSULE PO SCH ×2 (08:35→20:36)
[2022-07-31] MEDS: OMEPRAZOLE 20 MG CAPSULE PO SCH (08:35)
[2022-07-31] MEDS: ATORVASTATIN 20 MG TABLET PO SCH (08:35)
[2022-07-31] MEDS: FLUTICASONE FUROATE INH SCH (08:40)
[2022-07-31] MEDS: VILANTEROL INH SCH (08:40)
[2022-07-31] MEDS ORDERED: IPRATROPIUM/ALBUTEROL 3 ML AMPUL.NEB NEB SCH (09:30)
[2022-07-31] MEDS: cefTRIAXone 1 GM VIAL IV SCH (10:44)
--- NOTE | 2022-07-31 12:08 | Discharge Summary ---
Discharge Provider Provider IMPORTANT FOLLOW-UP INFORMATION FOR PCP: Patient information: Note initiated : 07/31/22 at 12:06 pm Service Date, if different from initiated Date: [] Patient: Nicole Garcia a 71 y/o F admitted on 07/30/22 for weakness. Chief Complaint: [] Date of admission: 07/30/22 21:32 Discharge date: 08/01/22 Primary care physician: Leonel Kemp Consults: 07/30/22 Consult to Physician [CONS] Stat Comment: Consulting Provider: Sotero Meeks Reason For Exam: Physician to Consult COURSE Hospital Course Hospital course: History of present illness: Ms. Garcia is a 71 year old F Presents the ED with shortness of breath and per family lethargy confusion and nausea vomiting. Patient also complains of fever and chills. She went to bed feeling fine and woke up feeling okay but gradually throughout the day she started noticing increased shortness of breath and then she had subsequent fevers and chills and lethargy. Family said she was out of sorts and did not make sense at times. She did have a left total hip arthroplasty on the seventh. And she does have a history of DVT. She has been bridged with Lovenox CTA of the chest was done in the ED which did not show any pulmonary embolism but did show moderate bibasilar pneumonia as well as emphysema. She is coughing as well. In the ED her fever was 102.4. He was mildly tachycardic at 100. She had a mild leukocytosis of 13. When EMS arrived at her house she had a oxygen saturation of 86%. He was placed on room air in the ED to see if she would do and she dropped into the 80s. Rapid Shaista for influenza AB and COVID were negative. Started on IV antibiotics in the ED. 07/31 Patient feeling little bit better today. She says cough and shortness of breath are improving. She does feel little bit wheezy. 08/01 Patient doing well. On room air. Desire to go home. Stable for discharge. A: *Acute hypoxic respiratory failure: *Pneumonia: *Sepsis: 2/2 above *Encephalopathy: Improved in the ED *h/o DVT: on eliquis *COPD: *GERD: *Obesity: BMI 35 *Recent Left HOLLIE: P: -Abx Discharge diagnosis: Pneumonia acute hypoxic respite failure sepsis Enc ephalopathy Secondary discharge diagnosis: History of DVT COPD GERD obesity recent left total hip arthroplasty Time Spent with Patient Time attestation: Total time spent providing and/or coordinating discharge services: Time spent: Greater than 30 minutes EXAM Constitutional Vitals: Temp Pulse Resp BP Pulse Ox O2 Del Method O2 Flow Rate 97.6 F 78 18 136/62 96 1 07/31/22 07:00 07/31/22 11:55 07/31/22 11:55 07/31/22 07:00 07/31/22 11:55 07/31/22 11:55 07/31/22 11:55 Discharge Data Data Completed and Pending Labs on day of discharge: Labs from last 24 hours 07/31/22 07/31/22 07/30/22 05:26 05:26 16:56 WBC 11.7 H RBC 3.35 L Hgb 9.0 L Hct 28.4 L MCV 84.8 MCH 26.9 MCHC 31.7 RDW 14.3 Plt Count 357 MPV 9.6 Immature Gran % (Auto) 0.4 Neut % (Auto) 75.8 Lymph % (Auto) 15.0 L [place] % (Auto) 6.5 Eos % (Auto) 2.1 Baso % (Auto) 0.2 Lymph # (Auto) 1.75 [place] # (Auto) 0.76 Eos # (Auto) 0.25 Baso # (Auto) 0.02 Immature Gran # 0.05 Absolute Neutrophils 8.82 H D-Dimer POC VBG pH POC VBG pCO2 at Temp POC VBG pO2 POC VBG HCO3 POC VBG Total CO2 POC Venous O2 Sat POC VBG Base Excess VBG Lactic Acid Sodium 135 Potassium 3.9 Chloride 99 Carbon Dioxide 26 Anion Gap 10.0 BUN 12 Creatinine 0.8 POC Creatinine 0.8 GFR Calculation 74 Glucose 128 H Uric Acid 4.1 Calcium 8.4 L Phosphorus 2.6 Magnesium 1.9 Total Bilirubin 0.7 Direct Bilirubin 0.3 H GGT 71 H AST 22 ALT 15 Alkaline Phosphatase 119 H Lactate Dehydrogenase 202 Troponin T NT-Pro-B Natriuret Pep Total Protein 5.7 L Albumin 3.1 L Globulin 2.6 Albumin/Globulin Ratio 1.2 Triglycerides 76 Procalcitonin 07/30/22 07/30/22 07/30/22 16:45 16:36 16:33 WBC RBC Hgb Hct MCV MCH MCHC RDW Plt Count MPV Immature Gran % (Auto) Neut % (Auto) Lymph % (Auto) [place] % (Auto) Eos % (Auto) Baso % (Auto) Lymph # (Auto) [place] # (Auto) Eos # (Auto) Baso # (Auto) Immature Gran # Absolute Neutrophils D-Dimer 1.20 H POC VBG pH 7.41 POC VBG pCO2 at Temp 41.6 POC VBG pO2 22 L POC VBG HCO3 26.3 POC VBG Total CO2 28.0 POC Venous O2 Sat 38.0 L POC VBG Base Excess 2.0 VBG Lactic Acid 1.1 Sodium Potassium Chloride Carbon Dioxide Anion Gap BUN Creatinine POC Creatinine GFR Calculation Glucose Uric Acid Calcium Phosphorus Magnesium Total Bilirubin Direct Bilirubin GGT AST ALT Alkaline Phosphatase Lactate Dehydrogenase Troponin T NT-Pro-B Natriuret Pep Total Protein Albumin Globulin Albumin/Globulin Ratio Triglycerides Procalcitonin 07/30/22 07/30/22 07/30/22 16:33 16:33 16:33 WBC RBC Hgb Hct MCV MCH MCHC RDW Plt Count MPV Immature Gran % (Auto) Neut % (Auto) Lymph % (Auto) [place] % (Auto) Eos % (Auto) Baso % (Auto) Lymph # (Auto) [place] # (Auto) Eos # (Auto) Baso # (Auto) Immature Gran # Absolute Neutrophils D-Dimer POC VBG pH POC VBG pCO2 at Temp POC VBG pO2 POC VBG HCO3 POC VBG Total CO2 POC Venous O2 Sat POC VBG Base Excess VBG Lactic Acid Sodium 136 Potassium 4.0 Chloride 100 Carbon Dioxide 25 Anion Gap 11.0 BUN 11 Creatinine 0.8 POC Creatinine GFR Calculation 74 Glucose 164 H Uric Acid Calcium 8.8 Phosphorus Magnesium Total Bilirubin 0.9 Direct Bilirubin GGT AST 23 ALT 14 Alkaline Phosphatase 122 H Lactate Dehydrogenase Troponin T < 0.01 NT-Pro-B Natriuret Pep 264.4 H Total Protein 6.3 Albumin 3.2 Globulin 3.1 Albumin/Globulin Ratio 1.0 Triglycerides Procalcitonin 0.15 H 07/30/22 16:33 WBC 13.4 H RBC 3.80 Hgb 10.0 L Hct 32.4 L MCV 85.3 MCH 26.3 MCHC 30.9 L RDW 14.3 Plt Count 379 MPV 9.5 Immature Gran % (Auto) 0.4 Neut % (Auto) 85.1 H Lymph % (Auto) 8.5 L [place] % (Auto) 5.2 Eos % (Auto) 0.7 Baso % (Auto) 0.1 Lymph # (Auto) 1.14 L [place] # (Auto) 0.69 Eos # (Auto) 0.09 Baso # (Auto) 0.02 Immature Gran # 0.05 Absolute Neutrophils 11.36 H D-Dimer POC VBG pH POC VBG pCO2 at Temp POC VBG pO2 POC VBG HCO3 POC VBG Total CO2 POC Venous O2 Sat POC VBG Base Excess VBG Lactic Acid Sodium Potassium Chloride Carbon Dioxide Anion Gap BUN Creatinine POC Creatinine GFR Calculation Glucose Uric Acid Calcium Phosphorus Magnesium Total Bilirubin Direct Bilirubin GGT AST ALT Alkaline Phosphatase Lactate Dehydrogenase Troponin T NT-Pro-B Natriuret Pep Total Protein Albumin Globulin Albumin/Globulin Ratio Triglycerides Procalcitonin Discharge Plan Patient/Caregiver Discharge Instructions Activity: increase activity as tolerated Diet: Regular Diet Prescriptions: New cefdinir 300 mg capsule 300 mg PO Q12H Qty: 10 0RF Continued omeprazole 20 mg Capsule,Delayed Release(Dr/Ec) 20 mg PO QDAY albuterol sulfate [Ventolin HFA] 90 mcg/actuation HFA aerosol inhaler 2 puff INHALATION Q4HP PRN (Reason: Shortness Of Breath) coenzyme Q10 [Co Q-10] 100 mg Capsule 100 mg PO QDAY rosuvastatin 10 mg Tablet 10 mg PO QAM Rx Instructions: Cannot recall dose; will call back with this later. cholecalciferol (vitamin D3) [Vitamin D3] 125 mcg (5,000 unit) Tablet 125 mcg PO QDAY fluticasone furoate-vilanterol [Breo Ellipta] 200-25 mcg/dose blister with device 1 inh INHALATION QAM hydrocodone-acetaminophen 5-325 mg Tablet 1 tab PO BIDP PRN (Reason: Pain) fexofenadine 180 mg Tablet 540 mg PO Q24H hydroxyzine HCl 25 mg Tablet 25 mg PO BID@0800,1300 hydroxyzine HCl 25 mg Tablet 175 mg PO QHS ipratropium bromide 42 mcg (0.06 %) [place],Non-Aerosol 2 spray INTRANASAL DAILYP PRN (Reason: ALLERGIES) Rx Instructions: administer into each nostril apixaban 5 mg (74 tabs) tablets,dose pack 5 mg PO BID hydrocodone-acetaminophen 10-325 mg tablet 1 - 2 tab PO Q4H PRN (Reason: pain) Qty: 75 0RF docusate sodium 100 mg capsule 100 mg PO BID Qty: 60 0RF Discontinued enoxaparin [Lovenox] 80 mg/0.8 mL Syringe 80 mg SUBCUT Q12H Rx Instructions: PT INSTRUCTED TO DO LOVENOX SHOTS 4 DAYS POST-OP aspirin [Ecotrin Low Strength] 81 mg tablet,delayed release (DR/EC) 81 mg PO BID Qty: 60 0RF Follow Up Plan Follow up with: Leonel Kemp [Primary Care Provider] - Patient Disposition: Home, Self-Care Overall status at discharge: patient is progressing back to baseline Discharge Orders: Discharge Order (Routine); Ordered 08/01/22 Ordered By: Sotero Meeks [facility] VTE Deep Vein Thrombosis/Pulmonary Embolism Present on Admission: No
[2022-07-31] MEDS: HYDROcodone/APAP 10/325MG TABLET PO PRN (12:43)
[2022-07-31] MEDS: AZITHROMYCIN 500 MG in DEXTROSE 5% IN WATER 250 ML IV SCH (13:46)
[2022-07-31] MEDS: ONDANSETRON 4 MG/2 ML VIAL IV PRN (14:42)
[2022-08-01] MEDS: ONDANSETRON 4 MG/2 ML VIAL IV PRN (03:34)
[2022-08-01] MEDS: 0.9 % SODIUM CHLORIDE 10 ML SYRINGE IV SCH ×2 (03:34→05:01)
[2022-08-01] MEDS: HYDROcodone/APAP 10/325MG TABLET PO PRN (05:56)
--- NOTE | 2022-08-01 08:35 | EKG ---
[facility] Minor Care Test Date: 2022-07-30 Pat Name: Nicole Garcia Department: ED Room: Gender: Female Rn Critical Care: LR : 1950 Requested By: Shree Reyes Order Number: [id number] Reading MD: Mak Wilkins Measurements Intervals [place]le Rate: 99 P: 28 CT: 144 QRS: -28 QRSD: 117 T: 107 QT: 422 QTc: 542 Interpretive Statements Sinus rhythm Nonspecific intraventricular conduction delay Borderline T abnormalities, lateral leads Electronically Signed On 08-01-2022 8:35:04 PST by Mak Wilkins /[id number]
[2022-08-01] MEDS: DOCUSATE SODIUM 100 MG CAPSULE PO SCH (10:01)
[2022-08-01] MEDS: cefTRIAXone 1 GM VIAL IV SCH (10:01)
[2022-08-01] MEDS: ATORVASTATIN 20 MG TABLET PO SCH (10:01)
[2022-08-01] MEDS: APIXABAN 5 MG TABLET PO SCH (10:01)
[2022-08-01] MEDS: OMEPRAZOLE 20 MG CAPSULE PO SCH (10:01)
[2022-08-01] MEDS: FLUTICASONE FUROATE INH SCH (10:02)
[2022-08-01] MEDS: VILANTEROL INH SCH (10:02)
== END 2022-08-01 11:00 | disposition home or self-care (01) | DRG 871 ==
LOC: ED 16:17 → MEDSUR 21:32
PROVIDERS: ADMIT Internal Medicine; ATTEND Internal Medicine

== ENCOUNTER 2024-07-16 15:43 | Inpatient (IN) ==
[2024-07-16] MEDS ORDERED: IOPAMIDOL 100 ML BOTTLE IV ONE (15:44)
[2024-07-16] MEDS: cefTRIAXone 1 GM VIAL IV ONE (16:35)
[2024-07-16] MEDS: 0.9 % SODIUM CHLORIDE 1,000 ML IV ONE (16:35)
[2024-07-16 16:39] LABS: Basophils # (Auto) 0.03 K/mcL (0.00-0.30); Basophils % (Auto) 0.3 % (0.0-2.0); Eosinophils # (Auto) 0 K/mcL (0.00-0.70); Eosinophils % (Auto) 0 % (0.0-7.0); Hematocrit 38.5 % (34.1-44.9); Lymphocytes # (Auto) 1.72 K/mcL (1.50-4.80); Mean Corpuscular HGB Conc 31.2 g/dL (31.0-36.0); Mean Platelet Volume 9.8 fL (8.8-12.5); Monocytes # (Auto) 0.76 K/mcL (0.10-0.90); Monocytes % (Auto) 6.6 % (1.0-12.0); Neutrophils % (Auto) 77.8 % (38.0-78.0); Platelet Count 419 K/mcL (140-440); RBC 4.64 M/mcL (3.59-5.38); Red Cell Distribution Width 16.8 % (11.5-14.5); WBC 11.5 K/mcL (4.5-11.0)
[2024-07-16 16:51] LABS: ALT/SGPT 32 U/L (<40); AST/SGOT 45 U/L (<32); Albumin 4.2 gm/dL (3.2-5.2); Albumin/Globulin Ratio 1.1 (1.0-2.3); Alkaline Phosphatase 111 U/L (39-117); Bilirubin,Total 1.3 mg/dL (0.1-1.0); Blood Urea Nitrogen 9 mg/dL (8-23); Calcium 9.1 mg/dL (8.6-10.4); Carbon Dioxide 20 mmol/L (22-30); Chloride 98 mmol/L (96-108); Globulin 3.8 gm/dL (2.2-3.7); Glomerular Filtration Rate 86; Glucose 145 mg/dL (70-105); Potassium 3.6 mmol/L (3.3-5.1); Sodium 135 mmol/L (133-145)
[2024-07-16] MEDS: ONDANSETRON 4 MG/2 ML VIAL IV ONE (20:09)
[2024-07-16] MEDS ORDERED: traZODone HCL 50 MG TABLET PO PRN (21:12)
[2024-07-16] MEDS ORDERED: oxyCODONE IR 5 MG TABLET PO PRN (21:12)
[2024-07-16] MEDS ORDERED: IBUPROFEN 600 MG TABLET PO PRN (21:12)
[2024-07-16] MEDS ORDERED: IPRATROPIUM/ALBUTEROL 3 ML AMPUL.NEB NEB PRN (21:12)
[2024-07-16] MEDS ORDERED: morphine 4 MG/ML VIAL IV PRN (21:12)
[2024-07-16] MEDS: ACETAMINOPHEN 325 MG TABLET PO PRN (23:04)
[2024-07-16] MEDS: SENNOSIDES 1 TABLET PO SCH (23:05)
[2024-07-16] MEDS: APIXABAN 5 MG TABLET PO SCH (23:05)
[2024-07-16] MEDS: DOCUSATE SODIUM 100 MG CAPSULE PO SCH (23:05)
[2024-07-16] MEDS: AZITHROMYCIN 500 MG in DEXTROSE 5% IN WATER 250 ML IV SCH (23:28)
[2024-07-16] MEDS: AZITHROMYCIN 500 MG in DEXTROSE 5% IN WATER 250 ML IV ONE (23:29)
[2024-07-16] MEDS: 0.9 % SODIUM CHLORIDE 10 ML SYRINGE IV SCH (23:29)
[2024-07-17 06:55] LABS: Basophils # (Auto) 0.02 K/mcL (0.00-0.30); Basophils % (Auto) 0.2 % (0.0-2.0); Eosinophils # (Auto) 0.01 K/mcL (0.00-0.70); Eosinophils % (Auto) 0.1 % (0.0-7.0); Hematocrit 35.1 % (34.1-44.9); Hemoglobin 10.8 g/dL (11.2-15.7); Lymphocytes # (Auto) 2.34 K/mcL (1.50-4.80); Lymphocytes % (Auto) 21.9 % (15.5-49.0); Mean Cell Volume 85.6 fL (80.0-100.0); Mean Corpuscular HGB Conc 30.8 g/dL (31.0-36.0); Mean Platelet Volume 9.7 fL (8.8-12.5); Monocytes # (Auto) 0.85 K/mcL (0.10-0.90); Monocytes % (Auto) 7.9 % (1.0-12.0); Neutrophils % (Auto) 69.5 % (38.0-78.0); Platelet Count 315 K/mcL (140-440); Red Cell Distribution Width 16.9 % (11.5-14.5); WBC 10.7 K/mcL (4.5-11.0)
[2024-07-17 07:23] LABS: ALT/SGPT 26 U/L (<40); AST/SGOT 36 U/L (<32); Albumin 3.5 gm/dL (3.2-5.2); Albumin/Globulin Ratio 1.1 (1.0-2.3); Alkaline Phosphatase 96 U/L (39-117); Blood Urea Nitrogen 9 mg/dL (8-23); Calcium 8.1 mg/dL (8.6-10.4); Carbon Dioxide 24 mmol/L (22-30); Chloride 105 mmol/L (96-108); Globulin 3.2 gm/dL (2.2-3.7); Glomerular Filtration Rate 90; Glucose 128 mg/dL (70-105); Potassium 3.2 mmol/L (3.3-5.1); Sodium 140 mmol/L (133-145)
[2024-07-17] MEDS: cefTRIAXone 1 GM VIAL IV SCH (08:31)
[2024-07-17] MEDS: AZITHROMYCIN 500 MG in 0.9 % SODIUM CHLORIDE 250 ML IV SCH (10:54)
[2024-07-17] MEDS ORDERED: METHOCARBAMOL 500 MG TABLET PO PRN (14:00)
[2024-07-17] MEDS: guaiFENesin/DEXTROMETHORPHAN 5ML UD CUP PO PRN (15:03)
[2024-07-17] MEDS: POTASSIUM CHLORIDE 20 MEQ TABLET PO SCH (17:15)
[2024-07-17] MEDS: rOPINIRole 1 MG TABLET PO SCH (20:21)
[2024-07-17] MEDS: HYDROCODONE/APAP 7.5/325MG TABLET PO SCH (20:22)
[2024-07-18] MEDS: ONDANSETRON 4 MG/2 ML VIAL IV PRN (04:36)
[2024-07-18 06:40] LABS: ALT/SGPT 23 U/L (<40); AST/SGOT 28 U/L (<32); Albumin 3.3 gm/dL (3.2-5.2); Alkaline Phosphatase 96 U/L (39-117); Bilirubin,Total 0.4 mg/dL (0.1-1.0); Blood Urea Nitrogen 9 mg/dL (8-23); Calcium 8.1 mg/dL (8.6-10.4); Carbon Dioxide 24 mmol/L (22-30); Chloride 104 mmol/L (96-108); Globulin 3.2 gm/dL (2.2-3.7); Glomerular Filtration Rate 96; Glucose 113 mg/dL (70-105); Potassium 3.5 mmol/L (3.3-5.1); Sodium 139 mmol/L (133-145)
[2024-07-18 06:41] LABS: Basophils # (Auto) 0.03 K/mcL (0.00-0.30); Basophils % (Auto) 0.3 % (0.0-2.0); Eosinophils # (Auto) 0.14 K/mcL (0.00-0.70); Eosinophils % (Auto) 1.6 % (0.0-7.0); Hematocrit 32.4 % (34.1-44.9); Hemoglobin 9.9 g/dL (11.2-15.7); Lymphocytes # (Auto) 2.21 K/mcL (1.50-4.80); Lymphocytes % (Auto) 25.5 % (15.5-49.0); Mean Cell Volume 84.8 fL (80.0-100.0); Mean Corpuscular HGB Conc 30.6 g/dL (31.0-36.0); Monocytes # (Auto) 0.68 K/mcL (0.10-0.90); Monocytes % (Auto) 7.9 % (1.0-12.0); Neutrophils % (Auto) 64.4 % (38.0-78.0); Platelet Count 282 K/mcL (140-440); RBC 3.82 M/mcL (3.59-5.38); Red Cell Distribution Width 16.5 % (11.5-14.5); WBC 8.7 K/mcL (4.5-11.0)
[2024-07-18] MEDS: OMEPRAZOLE 20 MG CAPSULE PO SCH (08:07)
[2024-07-18] MEDS: ASPIRIN 81 MG TAB.CHEW PO SCH (10:58)
[2024-07-18] MEDS: EZETIMIBE 10 MG TABLET PO SCH (10:58)
[2024-07-18] MEDS: Fluticasone Furoate-Vilanterol [Breo Ellipta] 200 INH SCH (10:58)
[2024-07-18] MEDS: LORATADINE 10 MG TABLET PO SCH (10:58)
[2024-07-18] MEDS: CALCIUM W/VIT D3 500 MG TABLET PO SCH (10:58)
[2024-07-18] MEDS: VITAMIN D3 125 MCG TABLET PO SCH (10:58)
[2024-07-19 07:10] LABS: Basophils # (Auto) 0.03 K/mcL (0.00-0.30); Basophils % (Auto) 0.5 % (0.0-2.0); Eosinophils # (Auto) 0.21 K/mcL (0.00-0.70); Eosinophils % (Auto) 3.3 % (0.0-7.0); Hematocrit 32.8 % (34.1-44.9); Hemoglobin 9.9 g/dL (11.2-15.7); Lymphocytes # (Auto) 2.42 K/mcL (1.50-4.80); Lymphocytes % (Auto) 38.1 % (15.5-49.0); Mean Cell Volume 85.9 fL (80.0-100.0); Mean Corpuscular HGB Conc 30.2 g/dL (31.0-36.0); Mean Platelet Volume 10.3 fL (8.8-12.5); Monocytes # (Auto) 0.53 K/mcL (0.10-0.90); Monocytes % (Auto) 8.3 % (1.0-12.0); Neutrophils % (Auto) 49.3 % (38.0-78.0); Platelet Count 304 K/mcL (140-440); RBC 3.82 M/mcL (3.59-5.38); Red Cell Distribution Width 16.4 % (11.5-14.5); WBC 6.4 K/mcL (4.5-11.0)
[2024-07-19 08:08] LABS: Blood Urea Nitrogen 9 mg/dL (8-23); Carbon Dioxide 22 mmol/L (22-30); Chloride 105 mmol/L (96-108); Glomerular Filtration Rate 90; Glucose 96 mg/dL (70-105); Potassium 3.9 mmol/L (3.3-5.1); Sodium 138 mmol/L (133-145)
[2024-07-19] MEDS: CALCIUM W/VIT D3 500 MG TABLET PO SCH (08:14)
[2024-07-19 11:55] VITALS: TEMP 97.8; O2SAT 94
== END 2024-07-19 13:21 | disposition home or self-care (01) | DRG 175 ==
LOC: ED 15:43 → MEDSUR 21:05
PROVIDERS: ADMIT Internal Medicine; ATTEND Internal Medicine